=== PATIENT | male | born 1990 ===

== ENCOUNTER 2016-10-12 09:07 | Inpatient (IN) | payer MEDICAID, OTHER ==
[2016-10-12 09:20] VITALS: BMI 23.0
--- NOTE | 2016-10-12 09:46 | C.PDOC ---
History Of Present Illness 26 y/o male presents to the ED requesting heroin and percocet detox. Last use 24 hours ago, normally uses daily. Pt states tried to detox on own but can't. Pt also reports generalized myalgias, nausea and vomiting. Denies fever, headache, dizziness, chest pain, SOB or any other complaints. REQUESTING HEROIN PERCOCET DETOX. LAST USE 24 HRS AGO. PS TRIED TO DETOX ON OWN BUT CAN'T. +GEN MYALGIA, [place]. STATES NORMALLY USES DAILY. EXAM MILD DIST NONTOXIC BACK NEG ABD NEG SKIN WARM DRY PSYCH NO ACUTE INTOX CALM COOPERATIVE Time Seen by Provider: 10/12/16 09:26 Chief Complaint (Nursing): Male Genitourinary History Per: Patient History/Exam Limitations: no limitations Suicide/Self Injury Attempted (Context): None Modifying Factor(s): Narcotics Severity: Mild Associated Symptoms: denies: Suicidal Thoughts Involuntary Hold By: None Recent travel outside of the [place]: No Past Medical History Reviewed: Historical Data, Nursing Documentation, Vital Signs Vital Signs: Last Vital Signs Temp 98.9 F 10/12/16 12:31 Pulse 60 10/12/16 12:31 Resp 18 10/12/16 12:31 BP 105/57 L 10/12/16 12:31 Pulse Ox 98 10/12/16 12:31 Family History: States: Unknown Family Hx - Social History Hx Alcohol Use: No Hx Substance Use: Yes - Immunization History Hx Tetanus Toxoid Vaccination: Yes Hx Influenza Vaccination: Yes Hx Pneumococcal Vaccination: No Review Of Systems Except As Marked, All Systems Reviewed And Found Negative. Constitutional: Positive for: Other (myalgias). Negative for: Fever Cardiovascular: Negative for: Chest Pain Respiratory: Negative for: Shortness of Breath Gastrointestinal: Positive for: Nausea, Vomiting Neurological: Negative for: Headache, Dizziness Physical Exam - Physical Exam Appears: Non-toxic, No Acute Distress Skin: Warm, Dry, No Rash Head: Atraumatic, Normacephalic Oral Mucosa: Moist Neck: Normal, Normal ROM, Supple Chest: Symmetrical Cardiovascular: Rhythm Regular, No Murmur Respiratory: Normal Breath Sounds, No Rales, No Rhonchi, No Wheezing Gastrointestinal/Abdominal: Normal Exam, Soft, No Tenderness Back: Normal Inspection, No CVA Tenderness, No Vertebral Tenderness, No Paraspinal Tenderness Extremity: Bilateral: Atraumatic Neurological/Psych: Oriented x3, Normal Speech, Other (no acute intoxication, calm, cooperative) ED Course And Treatment - Laboratory Results Result Diagrams: 10/12/16 10:45 10/12/16 10:45 O2 Sat by Pulse Oximetry: 100 (room air) Pulse Ox Interpretation: Normal Reevaluation Time: 12:25 Reassessment Condition: Improved (MED CLEAR FOR DETOX. CRISIS NOTIFIED) Medical Decision Making Medical Decision Making: Plan: * clonidine * motrin * zofran Disposition Counseled Patient/Family Regarding: Studies Performed, Diagnosis - Disposition Disposition: HOSPITALIZED Disposition Time: 12:33 Condition: STABLE - POA Present On Arrival: None - Clinical Impression Clinical Impression: Heroin use disorder, severe, dependence - Scribe Statement The provider has reviewed the documentation as recorded by the Julio Napier Provider Attestation: All medical record entries made by the Julio were at my direction and personally dictated by me. I have reviewed the chart and agree that the record accurately reflects my personal performance of the history, physical exam, medical decision making, and the department course for this patient. I have also personally directed, reviewed, and agree with the discharge instructions and disposition. Decision To Admit - Pt Status Changed To: Hospital Disposition Of: Inpatient - Admit Certification Admit to Inpatient:: After my assessment, the patient will require hospitalization for at least two midnights. This is because of the severity of symptoms shown, intensity of services needed, and/or the medical risk in this patient being treated as an outpatient. - InPatient: Physician Admission Certification: I certify that this patient requires 2 or more midnights of care for the following reason:: SEE NOTE - . Bed Request Type: Detox Admitting Physician: Asmita Zepeda Patient Diagnosis: Heroin use disorder, severe, dependence
[2016-10-12 11:03] LABS: BASO # 0.1 K/uL (0.0-0.2); BASO % 0.9 % (0.0-2.0); EOS # 0.1 K/uL (0.0-0.7); EOS % 0.8 % (0.0-4.0); HEMOGLOBIN 12.9 g/dL (12.0-18.0); LYMPH # 1.4 K/uL (1.0-4.3); LYMPH % 16.9 % (20.0-40.0); MEAN CELL VOLUME 85.4 fL (80.0-94.0); MEAN CORPUSCULAR HEMOGLOBIN 28.9 pg (27.0-31.0); MEAN CORPUSCULAR HGB CONC 33.8 g/dL (33.0-37.0); MEAN PLATELET VOLUME 8.6 fL (7.2-11.7); MONO # 0.6 K/uL (0.0-0.8); MONO % 6.8 % (0.0-10.0); NEUT # 6.3 K/uL (1.8-7.0); NEUT % 74.6 % (50.0-75.0); RBC 4.47 Mil/uL (4.40-5.90); RED CELL DISTRIBUTION WIDTH 13.3 % (11.5-14.5); WHITE BLOOD COUNT 8.4 K/uL (4.8-10.8)
[2016-10-12 11:09] LABS: SQUAMOUS EPITHIAL < 1 /hpf (0-5); URINE BILIRUBIN NEGATIVE (NEGATIVE); URINE BLOOD NEGATIVE (NEGATIVE); URINE CALCIUM OXALATE CRYSTALS FEW /hpf (<OCC); URINE CLARITY Hazy (Clear); URINE COLOR Amber (YELLOW); URINE GLUCOSE (UA) NORMAL (Normal); URINE LEUKOCYTE ESTERASE NEG Leu/uL (Negative); URINE NITRATE NEGATIVE (NEGATIVE); URINE PROTEIN 1+ mg/dL (NEGATIVE)
[2016-10-12 11:20] LABS: AST/SGOT 24 U/L (17-59); GFR AFRICAN-AMERICAN > 60; GFR NON-AFRICAN AMERICAN > 60
[2016-10-12 11:21] LABS: ALT/SGPT 26 U/L (21-72); BLOOD UREA NITROGEN 7 mg/dL (9-20); CALCIUM 9.5 mg/dl (8.6-10.4)
[2016-10-12 11:25] LABS: BARBITURATES, UR NEGATIVE (NEGATIVE)
[2016-10-12 11:26] LABS: BENZODIAZEPINES, UR NEGATIVE (NEGATIVE)
[2016-10-12 11:29] LABS: PHENCYCLIDINE, UR NEGATIVE (NEGATIVE)
[2016-10-12 12:19] LABS: OPIATES, UR POSITIVE (NEGATIVE)
[2016-10-12] MEDS ORDERED: Aluminum Hydroxide/Magnesium Hydroxide Susp (30 mL) PO PRN (14:18)
--- NOTE | 2016-10-12 18:23 | PCM.PSYCH ---
Initial Psychiatric Evaluation - Initial Psychiatric Evaluation Type of Admission: Voluntary Legal Status: Capacity Chief Complaint (in patient's own words): "I need to stop this" Patient's Reaction to Hospitalization: The pt is seen, chart reviewed and case discussed. 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 He uses 30 bags or more heroin IV, plus some percocets sometimes, x4 months. He started 5 years ago with painkillers. He also uses cocaine in/iv once a week and cannabis on and off. No previous detox, rehab or NA experience or sbx or mmtp. He has wdw sxs already Past psych hx: Denies Medical hx: Denies Family psych hx: Denies Current Medications: Active Medications Generic Name Dose Route Start Last Admin Trade Name Freq PRN Reason Stop Dose Admin Al Hydrox/Mg Hydrox/Simethicone 30 ml 10/12/16 14:18 Maalox 30 Ml PO TID PRN Indigestion / Heartburn Clonidine HCl 0.1 mg 10/12/16 14:18 Catapres PO Q8 PRN COWS Score More or Equal to 5 Gabapentin 300 mg 10/12/16 18:00 Neurontin PO BID LILIANA Hydroxyzine HCl 50 mg 10/12/16 14:17 10/12/16 16:22 Atarax PO 50 mg Q6H PRN Administration Anxiety Ibuprofen 600 mg 10/12/16 14:17 Motrin Tab PO Q6H PRN Pain, moderate (4-7) Loperamide HCl 2 mg 10/12/16 14:18 Imodium PO Q8 PRN Diarrhea Methadone HCl 0 mg 10/13/16 10:00 Methadone PO 10/16/16 09:59 Q24H LILIANA Taper Ondansetron HCl 4 mg 10/12/16 14:18 Zofran Tab PO Q8 PRN Nausea/Vomiting Trazodone HCl 100 mg 10/12/16 14:17 Desyrel PO HS PRN Insomnia Past Psychiatric History - Past Psychiatric History Previous Treatment History: None Pertinent Medical Hx (Current Medical&Sleep Prob, Allergies): Allergies Allergy/AdvReac Type Severity Reaction Status Date / Time No Known Allergies Allergy Verified 10/12/16 09:19 No Known Home Med 10/12/16 Review of Systems - Neurological Neurological: UNREMARKABLE - Psychiatric Psychiatric: Abnormal Sleep Pattern, Anxiety, Difficulty Concentrating. absent : Hallucinations, Homicidal Ideation, Paranoia, Suicidal Ideation Mental Status Examination - Personal Presentation Personal Presentation: Looks stated age - Affect Affect: Constricted - Motor Activity Motor Activity: Calm - Reliability in Providing Information Reliability in Providing Information: Good - Speech Speech: Organized - Mood Mood: Anxious - Formal Thought Process Formal Thought Process: No Impairment - Cognitive Functions Orientation: Person, Place, Situation, Time Sensorium: Alert Attention/Concentration: Attentive Abstract Thinking: [place] Estimate of Intelligence: Average Judgement: Intact, as evidence by: Insight regarding need for hospitalization Memory: Recent intact, as evidence by: Ability to recall events of the day, Remote intact, as evidenced by: Abilit to recall sig. life events - Risk Risk: Withdrawal, Diminished functioning - Strength & Assets Inventory Strength & Assets Inventory: Cooperative - Limitations Limitations: Living alone, Other DSM 5 DX - DSM 5 DSM 5 Diagnosis: Opioid withdrawal Opioid use d/o - severe Cocaine use d/o - moderate Cannabis use d/o - moderate - Recommended/Plan of Treatment Treatment Recommendations and Plan of Treatment: Methadone detox for opioids Gabapentin for anxiety, cocaine and cannabis wdw As needed meds Attend grpups and activities [place] and CBT Support and psychoed Get Medicaid [place] Refer to [facility] until he gets Medicaid or [employer] 33 min Projected ELOS: 4 days Prognosis: good w tx Discharge Plan and Discharge Criteria: No wdw sxs Refer to IOP - Smoking Cessation Smoking Cessation Initiated: Yes
--- NOTE | 2016-10-13 13:33 | PCM.PYCHPN ---
Psychiatric Progress Note - Psychiatric Progress Note Patient seen today, length of contact: 16 min Patient Chief Complaint: "I am OK" Problems Identified/Issues Discussed: The pt is seen, chart reviewed, case discussed with staff. Support given, CBT and [place] used briefly No new symptoms reported, improving slowly and needs more time No SEs from medications, risks discussed. After care discussed - he is NOT intesrested. He had even accidentally admitted that the only reason he is here is b/c he ran out of money. Low insight. W[place] used again Medication Change: Yes (detox changes daily) Medical Record Reviewed: Yes Mental Status Examination - Cognitive Function Orientation: Person, Place, Situation, Time Memory: Intact Attention: WNL Concentration: WNL Association: WN Fund of Knowledge: WNL - Mood Mood: Anxious - Affect Affect: Constricted - Speech Speech: Appropriate - Formal Thought Process Formal Thought Process: No Impairment - Suicidal Ideation Suicidal Ideation: No - Homicidal Ideation Homicidal Ideation: No Goal/Treatment Plan - Goal/Treatment Plan Need for Continued Stay: Discharge may exacerbated symptoms, Severe functional impairment Progress Toward Problem(s) and Goals/Treatment Plan: Methadone detox for opioids Gabapentin for anxiety, cocaine and cannabis wdw As needed meds Attend grpups and activities [place] and CBT Support and psychoed Get Medicaid [place] Referrals by counselor Estimated Date of D/C: 10/15/16 - Smoking Cessation Smoking Cessation Initiated: Yes
--- NOTE | 2016-10-14 14:43 | PCM.PYCHPN ---
Psychiatric Progress Note - Psychiatric Progress Note Patient seen today, length of contact: 16 min Patient Chief Complaint: "Alright I guess" Problems Identified/Issues Discussed: The pt is seen, chart reviewed, case discussed with staff. Support given, CBT and [place] used briefly No new symptoms reported, improving slowly and needs some more time No SEs from medications, risks discussed. After care discussed - not very interested but he appears semi-interested. Risks discussed Medication Change: Yes (detox changes daily) Medical Record Reviewed: Yes Mental Status Examination - Cognitive Function Orientation: Person, Place, Situation, Time Memory: Intact Attention: WNL Concentration: WNL Association: WNL Fund of Knowledge: WNL - Mood Mood: Anxious - Affect Affect: Constricted - Speech Speech: Appropriate - Formal Thought Process Formal Thought Process: No Impairment - Suicidal Ideation Suicidal Ideation: No - Homicidal Ideation Homicidal Ideation: No Goal/Treatment Plan - Goal/Treatment Plan Need for Continued Stay: Discharge may exacerbated symptoms, Severe functional impairment Progress Toward Problem(s) and Goals/Treatment Plan: Methadone detox for opioids Gabapentin for anxiety, cocaine and cannabis wdw As needed meds Attend grpups and activities [place] and CBT Support and psychoed Get Medicaid [place] Referrals by counselor
--- NOTE | 2016-10-15 09:48 | PCM.PYCHDC ---
Mental Status Examination - Mental Status Examination Orientation: Person, Place, Situation, Time Memory: Intact Mood: Neutral Affect: Constricted Speech: Soft Attention: WNL Concentration: WNL Association: WNL Fund of Knowledge: WNL Formal Thought Process: No Impairment Description of patient's judgement and insight: good, fair Psychotic Thoughts and Behaviors: denies any AVH Suicidal Ideation: No Current Homicidal Ideation?: No Discharge Summary - Discharge Note Reason for Hospitalization: The pt is seen, chart reviewed and case discussed. 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 He uses 30 bags or more heroin IV, plus some percocets sometimes, x4 months. He started 5 years ago with painkillers. He also uses cocaine in/iv once a week and cannabis on and off. No previous detox, rehab or NA experience or sbx or mmtp. He has wdw sxs already Past psych hx: Denies Consultations:: List each consultation separately and include: 1. Reason for request. 2. Findings. 3. Follow-up Summary of Hospital Course include:: 1. Description of specific treatment plan utilized for patients during their course of treatmen. 2. Summarize the time- course for resolution of acute symptoms and/or regressed behaviors. 3. Describe issues identified and worked on during hospitalization. 4. Describe medication utilized. 5. Describe medical problems identified and treated. 6. Reassessment of suicide risk Summary of Hospital Course: During the course of his stay, patient (pt) started progressively improving and he no longer remained anxious and irritable. He tolerated the withdrawal protocol very well. He didnt have any shakes, sweating, tremors or cramps or any other withdrawal symptoms upon discharge. He started attending groups and meetings and started socializing. He denied any feelings of hopelessness, helplessness, and worthlessness, denied any problem with the sleep or appetite, denied suicidal ideation or homicidal ideation. Pt denied any auditory or visual hallucinations. Patient remained calm and cooperative and remained compliant with the medications. Patient tolerated the detox medications very well and denied any side effects. - Final Diagnosis (DSM 5) Condition upon Discharge: STABLE DSM 5: Opioid withdrawal Opioid use d/o - severe Cocaine use d/o - moderate Cannabis use d/o - moderate Disposition: HOME/ ROUTINE Follow-up Treatment Plan: Education: Pt was educated and counseled about the risks and benefits of taking and not taking medications. Pt was educated and counseled about the risks of drinking and abusing drugs. Pt was educated and counseled to go to the ER or call 911 if pt develop suicidal ideation or homicidal ideation, worsening of symptoms or severe side effects of the meds. Prescriptions/Medication Reconciliation: Gabapentin [Neurontin] 300 mg PO BID #60 cap traZODone [Desyrel] 100 mg PO HS PRN #30 tab PRN Reason: Insomnia - Smoking Cessation Smoking Cessation Medication prescribed: No - Antipsychotic Medications Pt discharged on 2 or more routine antipsychotic medications: No
[2016-10-15 10:45] VITALS: BP 115/54; PULSE 74; RESP 20; TEMP 97.7; O2SAT 100
== END 2016-10-15 10:25 | disposition home or self-care (01) | DRG 745 ==
LOC: C.ER 09:07 → C.7D 12:35
PROVIDERS: ADMIT Psychiatry & Neurology Psychiatry; ATTEND Psychiatry & Neurology Psychiatry
DX: F11.23 Opioid dependence with withdrawal (principal); F12.90 Cannabis use, unspecified, uncomplicated; F14.90 Cocaine use, unspecified, uncomplicated

== ENCOUNTER 2017-11-23 02:29 | Emergency (ER) | payer SELFPAY ==
[2017-11-23 02:29] VITALS: BMI 23.0
[2017-11-23 02:35] VITALS: BP 146/85; PULSE 84; RESP 97; TEMP 97.7
[2017-11-23] MEDS ORDERED: Naproxen 550 mg Tab PO STA (02:49)
--- NOTE | 2017-11-23 02:49 | C.PDOC ---
History Of Present Illness 27 year old male with a Hx of chronic lower back pain presents to the ER with a complaint of lower back pain. Patient states he has been taking heroin for the pain. He is also requesting detox from heroin, he admits to heroin and cocaine use yesterday. Denies other complaints at this time. Chief Complaint (Nursing): Back Pain History Per: Patient History/Exam Limitations: no limitations Onset/Duration Of Symptoms: Hrs Current Symptoms Are (Timing): Still Present Recent travel outside of the [place]: No Past Medical History Reviewed: Historical Data, Nursing Documentation, Vital Signs Vital Signs: Last Vital Signs Temp 97.7 F 11/23/17 02:33 Pulse 84 11/23/17 02:33 Resp 97 H 11/23/17 02:33 BP 146/85 11/23/17 02:33 Pulse Ox - Medical History PMH: Denies: Diabetes, Hepatitis, HIV, HTN, Seizures, Sexually Transmitted Disease Family History: States: Unknown Family Hx - Social History Hx Alcohol Use: No Hx Substance Use: Yes - Immunization History Hx Tetanus Toxoid Vaccination: Yes Hx Influenza Vaccination: Yes Hx Pneumococcal Vaccination: No Review Of Systems Constitutional: Negative for: Fever, Chills Cardiovascular: Negative for: Chest Pain, Palpitations Respiratory: Negative for: Cough, Shortness of Breath Gastrointestinal: Negative for: Abdominal Pain Musculoskeletal: Positive for: Back Pain Neurological: Negative for: Weakness, Numbness Physical Exam - Physical Exam Appears: Non-toxic Skin: Normal Color, Warm, Dry Head: Atraumatic, Normacephalic Eye(s): bilateral: Normal Inspection Oral Mucosa: Moist Chest: Symmetrical, No Tenderness Cardiovascular: Rhythm Regular Respiratory: Normal Breath Sounds, No Rales, No Rhonchi, No Wheezing Gastrointestinal/Abdominal: Soft, No Tenderness Back: No Vertebral Tenderness, No Paraspinal Tenderness Extremity: Normal ROM (x4) Neurological/Psych: Oriented x3, Normal Speech, Normal Motor, Normal Sensation Gait: Steady ED Course And Treatment Progress Note: Naproxen administered. Patient seen by crisis and given list of available detox sites in the area. Disposition Counseled Patient/Family Regarding: Diagnosis - Disposition Referrals: [facility] [Outside] Disposition: HOME/ ROUTINE Disposition Time: 02:53 Condition: STABLE Prescriptions: Naproxen 375 mg PO TIDPC #20 tablet Instructions: Low Back Pain in Adults Forms: [facility] ([place]) - POA Present On Arrival: None - Clinical Impression Clinical Impression: Low back pain, Drug abuse and dependence - Scribe Statement The provider has reviewed the documentation as recorded by the Scribe Juve Tucker All medical record entries made by the Scribe were at my direction and personally dictated by me. I have reviewed the chart and agree that the record accurately reflects my personal performance of the history, physical exam, medical decision making, and the department course for this patient. I have also personally directed, reviewed, and agree with the discharge instructions and disposition.
[2017-11-23] MEDS ORDERED: Naproxen 550 mg Tab PO ONE (02:56)
== END 2017-11-23 03:04 | disposition home or self-care (01) ==
LOC: C.ER 02:29
DX: M54.5 Low back pain (principal); F19.20 Other psychoactive substance dependence, uncomplicated